=== PATIENT | female | born 1960 | race Caucasian/White ===

== ENCOUNTER 2018-10-19 09:14 | Emergency (ER) | payer OTHER, SELFPAY ==
[2018-10-19 09:21] VITALS: BP 133/83; PULSE 80; RESP 16; TEMP 36.6; O2SAT 98
--- NOTE | 2018-10-19 09:28 | DI.COMBO_ITS ---
SYMPTOM/DIAGNOSIS: FELL, LT SCALP CONTUSION, ? FX OR BLEED, PAIN AND SWELLING THUMB NONCONTRAST HEAD CT: Comparison is made with 09/29/17. The ventricles and sulci are consistent with the patient's age. The ventricles are intact. The basilar cisterns are patent. No acute intracranial hemorrhage, midline shift or mass effect is identified. No evidence of a skull fracture is seen. The visualized paranasal sinuses are clear. The mastoid air cells are well pneumatized. There is a scalp hematoma overlying the left frontal bone. 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 IMPRESSION: No acute intracranial process. RIGHT THUMB: Three views. There is a comminuted fracture involving the base of the first metacarpal. The fracture involves the articular surface. The fracture is impacted and displaced. No other fracture or dislocation is seen. There is soft tissue swelling about the metacarpal. IMPRESSION: Acute comminuted, intra-articular impacted fracture involving the base of the first metacarpal.
[2018-10-19] MEDS: Ibuprofen 800 MG TAB PO (09:36)
[2018-10-19] MEDS: Acetaminophen 500 MG TAB 1000 MG PO (09:37)
--- NOTE | 2018-10-19 09:41 | ED.GENADUL_ITS ---
Discharge Plan Disposition Patient Disposition: HOME Condition: Good Discharge Details Chief Complaint: Trauma Clinical Impression: Contusion of scalp, Laceration of scalp, Closed fracture of right thumb Primary Care Provider: Candida Nino ED Provider: Robert Fermin Home Meds and New Rx's Prescriptions: No Action liothyronine [Cytomel] 5 MCG tablet 5 mcg PO DAILY RF: 0 Discharge Instructions Instructions: Care For Your Stitches (ED) Additional Instructions: Please keep your thumb spica on. Dr. Mascorro plans on reaching out to you tomorrow, however if you do not hear from him tomorrow please give his office a call. Please take Tylenol and Motrin as needed for pain. Please return in 7 to 10 days to have your sutures removed. If you notice any worsening of your symptoms, or any new symptoms such as vomiting, diarrhea, fever, chills, shortness of breath, chest pain, numbness, weakness, or fainting , please return immediately to the emergency department for reevaluation. Please follow up with your primary care provider as soon as possible for reassessment and reevaluation. As always, it was a pleasure participating in your medical care today. Please leave the dressing on for 24 hours, then you may remove and begin cleaning the wound at least twice a day with soap and water. Apply antibiotic ointment. Do not directly soak the area. Watch for any signs of infection and return if any increasing redness, swelling, pain, drainage. Medical Decision Making This is a pleasant 58-year-old female who presents for evaluation of fall. She is working in her garden when she had a mechanical trip, fell and hit the left side of her scalp, as well as her right thumb on her dominant hand. She has a notable contusion on her scalp. Small laceration as well. Tetanus is up-to-date. No loss of consciousness, no blood thinner use. Signs and symptoms demonstrate no neurologic deficit on thorough exam. However with her age, and the mechanism I am concerned for acute intracranial injury or fracture. We will get an x-ray of the hand and a CT scan of the head to rule out acute process. We will suture the patient's scalp, place her hand in a brace, and reassess. 11:[address] results have returned, per virtual radiology no acute process in the head. No acute fracture or bleed. X-ray of the thumb demonstrates notable fracture at the base. The patient has seen Dr. Diaz before and she is requesting to follow-up with him. We have contacted [facility] and I discussed the case with him personally, he agrees with the need for surgical intervention, as well as the need for a thumb spica at this time. We will place her in that. Patient is feeling well otherwise. Patient will be discharged home with prompt follow-up with [facility] tomorrow morning. I have extensively reviewed the treatment plan and discharge instructions with the patient. I have addressed all patient concerns at this time. The patient was made aware of what symptoms to monitor for that would warrant a return to the emergency department. Discussed the plan with the patient, they demonstrate verbal understanding and agreement with our assessment and plan at this time. Procedure: Suture Patient was positioned appropriately, 5cc lidocaine without epinephrine> was used as a local anesthetic. Copious amounts normal saline with chlorhexidine used for irrigation. Patient was sterile draped with wound exposed. 5 sutures using 5-0 Ethilon were placed in a simple interrupted fashion with good approximation. Wound dressed with sterile gauze. A small amount of Dermabond was placed over the sutures knots. Estimated Blood Loss:0ml The patient tolerated the procedure well and there were no complications. COMPARISON: No relevant prior studies available. FINDINGS: Bones/joints: Acute comminuted intra-articular fracture of the base of the thumb metacarpal. Up to 8 mm of displacement and 7 mm of impaction. No dislocation. Soft tissues: Soft tissue swelling surrounding the thumb metacarpal. IMPRESSION: Acute comminuted, impacted, and displaced intra-articular fracture of the thumb metacarpal. Please note that this is a preliminary report. The separate, final report is to follow. Thank you for allowing us to participate in the care of your patient. Dictated and Authenticated by: Peg Gomes MD COMPARISON: CT HEAD AND CSPINE W/O CONTRAST 09/29/2017 5:24 PM FINDINGS: Brain: Mild diffuse cortical volume loss. No acute intracranial hemorrhage. No midline shift. Ventricles: Normal. No ventriculomegaly. 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 Sinuses: Unremarkable as visualized. No acute sinusitis. Mastoid air cells: Visualized mastoid air cells are well aerated. No mastoid effusion. Soft tissues: Left frontal scalp contusion. IMPRESSION: No acute intracranial abnormality is identified. Please note that this is a preliminary report. The separate, final report is to follow. Thank you for allowing us to participate in the care of your patient. Dictated and Authenticated by: Peg Gomes MD [facility] General Date/Time Provider Initiated Documentation: 10/19/18 09:19 . HPI Narrative: This is a pleasant 58-year-old female with a past medical history of thyroid disease, whose tetanus is up-to-date, who presents today for evaluation of fall. Patient states that she was gardening, had a mechanical trip over her mud boots, and fell and hit the left side of her scalp on gravel, suffered a laceration on her scalp, and mild contusion. She also landed on right dominant hand, and the thumb in particular. She developed notable swelling in the left thumb secondary to this. Tetanus was updated 4 years ago. She denies any loss of consciousness. She is not on any blood thinners. She denies any vision changes, severe headache, vomiting, diarrhea, chest pain, shortness of breath, or pain in any other component of her extremities. She denies any hand or wrist pain aside for the thumb in particular. She denies any elbow shoulder neck back chest or abdominal pain. She denies any numbness tingling or weakness. No other modifying factors. Related Data Home Medications Medication Instructions Recorded Confirmed liothyronine [Cytomel] 5 mcg PO DAILY 09/29/17 10/19/18 Allergies Allergy/AdvReac Type Severity Reaction Status Date / Time Sulfa (Sulfonamide Allergy Skin Rash Unverified 10/19/18 09:29 Antibiotics) Review of Systems Review of Systems All systems reviewed & are unremarkable except as noted in HPI and below PFSH Medical History Hypothyroid (Chronic) Surgical History History of knee surgery (Acute) H/O section (Chronic) History of appendectomy (Chronic) Social History Smoking/Tobacco Use Status: Never Substance use type: does not use Do you feel safe in your relationship?: Yes Exam Narrative Exam Narrative: 1.Const: Well-nourished, Well-developed, appearing stated age 2.Eyes: PERRL, no conjunctival injection, and symmetrical lids. 3.ENT: There is no evidence of raccoon eyes, mota sign, CSF rhinorrhea, mastoid tenderness, cranial crepitus, hemotympanum, exophthalmos, or hyphema. Patient demonstrates intact dentition with no signs of tooth avulsion or fracture, no signs of jaw deformity, no evidence of a LeFort's fracture, with an intact palate, nose and orbital region. There is no evidence of a nasal septal hematoma. No proptosis. Jaw closes symmetrically. Airway is clear. 4.CVS: +S1/S2, No murmurs or gallops. Peripheral pulses 2+ and equal in all extremities. Brisk capillary refill in all extremities. 5.RESP: Unlabored respiratory effort. Clear to auscultation bilaterally. No wheezes rales or rhonchi 6.GI: Soft, Nontender/Nondistended, No hepatosplenomegaly. No guarding or rebound. 7.MSK: No gross deformities or discolorations or lesions, however there is evidence of notable swelling over the right thumb over the metacarpal region. Notable swelling and tenderness over the first metacarpal. Thumb demonstrates good flexion and extension, however notable pain is brought about with abduction and abduction. Swelling is notable, and so it is difficult to evaluate for laxity. Sensation is intact distal to the injury site though, including two- point discrimination on all fingers at 3 mm. Capillary refill is normal. No pain for the fingers, the hand, or at the anatomical snuffbox. No wrist pain. All compartments of upper and lower extremities are soft with no tenderness. Vascular exam demonstrates brisk capillary refill and intact pulses in all extremities. Pelvic exam demonstrates a stable pelvis, nontender to lateral compression and palpation of symphysis pubis.. No clinical evidence of significant musculoskeletal trauma. 8.Skin: Warm, Dry. Notable contusion over the left forehead with a mild 3 cm laceration on top with a contusion. No active bleeding. Does appear superficial with no evidence of deep tissue structures or bone involvement. 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 Sensation grossly intact, no focal neurologic deficits. All 6 cardinal planes of vision are fully intact. No evidence of rotatory or vertical nystagmus. The patient demonstrated a normal [id number], good dexterity. There was no evidence of dysdiadochokinesia. Patient was able to ambulate without difficulty. There was no wide-based gait. Romberg, and [id number] are both normal on testing. Sensation was intact bilaterally as well as muscle strength bilaterally for all extremities. Patient was able to verbalize butter cup with no slurring, or miss pronunciation. 10.Psych: (AAO) x3. Appropriate mood and affect
--- NOTE | 2018-10-19 11:23 | DI.VRAD_ITS ---
EXAM: CT Head Without Contrast EXAM DATE/TIME: 10/19/2018 9:31 AM CLINICAL HISTORY: 58 years old, female; Signs and symptoms; Other: Fall, left scalp contusion, R/O fx/ bleed TECHNIQUE: Imaging protocol: Axial computed tomography images of the head without contrast. Coronal and sagittal reformatted images were created and reviewed. Radiation optimization: All CT scans at this facility use at least one of these dose optimization techniques: automated exposure control; mA and/or kV adjustment per patient size (includes targeted exams where dose is matched to clinical indication); or iterative reconstruction. COMPARISON: CT HEAD AND CSPINE W/O CONTRAST 09/29/2017 5:24 PM FINDINGS: Brain: Mild diffuse cortical volume loss. No acute intracranial hemorrhage. No midline shift. Ventricles: Normal. No ventriculomegaly. 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 Sinuses: Unremarkable as visualized. No acute sinusitis. Mastoid air cells: Visualized mastoid air cells are well aerated. No mastoid effusion. Soft tissues: Left frontal scalp contusion. IMPRESSION: No acute intracranial abnormality is identified. Please note that this is a preliminary report. The separate, final report is to follow. Dictated and Authenticated by: Peg Gomse MD. Ordering:PRESTON Jones MD
--- NOTE | 2018-10-19 11:25 | DI.VRAD_ITS ---
EXAM: XR Right Finger(s) EXAM DATE/TIME: 10/19/2018 9:31 AM CLINICAL HISTORY: 58 years old, female; Signs and symptoms; Other: Fall, notable pain/swelling lt thumbmetacarpal TECHNIQUE: Imaging protocol: XR Right fingers. Views: Minimum 2 views. COMPARISON: No relevant prior studies available. FINDINGS: Bones/joints: Acute comminuted intra-articular fracture of the base of the thumb metacarpal. Up to 8 mm of displacement and 7 mm of impaction. No dislocation. Soft tissues: Soft tissue swelling surrounding the thumb metacarpal. IMPRESSION: Acute comminuted, impacted, and displaced intra-articular fracture of the thumb metacarpal. Please note that this is a preliminary report. The separate, final report is to follow. Dictated and Authenticated by: Peg Gomes MD. Ordering:PRESTON Jones MD
[2018-10-19 12:00] VITALS: BP 133/75; PULSE 67; RESP 16; TEMP 36.6; O2SAT 96
== END 2018-10-19 12:00 | disposition home or self-care (01) ==
PROVIDERS: Emergency Provider Student in an Organized Health Care Education/Training Program; PCP Family Medicine
DX: S62.231A Other displaced fracture of base of first metacarpal bone, right hand, initial encounter for closed fracture (principal); S01.01XA Laceration without foreign body of scalp, initial encounter; W01.0XXA Fall on same level from slipping, tripping and stumbling without subsequent striking against object, initial encounter
CPT/HCPCS: 12002; 26600; 99284; 70450; 73140; L3807

== ENCOUNTER 2020-03-09 15:26 | Emergency (ER) | payer BC, SELFPAY ==
[2020-03-09 15:30] VITALS: BP 151/91; PULSE 71; RESP 20; TEMP 36.4; O2SAT 98
--- NOTE | 2020-03-09 15:41 | ED.GENADUL_ITS ---
Discharge Plan Disposition Patient Disposition: HOME Condition: Stable Discharge Details Clinical Impression: Laceration of leg Primary Care Provider: Candida Nino ED Provider: Serene Cadena Home Meds and New Rx's Prescriptions: New cephalexin [Keflex] 500 mg capsule 500 mg PO TID 7 Days Qty: 21 RF: 0 Continued liothyronine [Cytomel] 5 MCG tablet 5 mcg PO DAILY RF: 0 Discharge Instructions Instructions: Laceration (ED) Additional Instructions: Keep wound clean and dry. Cover wound with bandage if risk of contamination. Otherwise you can keep the wound open to air if resting at home to allow edges to dry and heal. Take the antibiotics until finished. Return to the emergency department in 7 to 10 days for suture removal. Discharge Data Discharge Date/Time-TO BE ENTERED AT DEPARTURE: 03/09/20 18:00 Discharge Physician: Serene Cadena Medical Decision Making 59-year-old female presents with left leg injury after kicked by horse just prior to arrival. She has a 4 x 4 millimeter puncture site skin avulsion to the left lower anterior lateral leg. There is no obvious foreign body or orthopedic deformity. Tetanus up-to-date. Obtain x-ray to rule out fracture versus foreign body. Will irrigate wound and attempt closure. X-ray negative for fracture and foreign body. Wound irrigated well. Wound appears most likely consistent with avulsion with macerated tissue around edge. She has continued oozing. 4 nylon 5-0 sutures placed to minimally approximate wound. Discussed with patient that there is a strong possibility of poor wound healing as it is her distal extremity, and edges not approximated likely due to macerated tissue with avulsion. Will place on antibiotics to cover for inf ection. Gelfoam placed to wound covered with gauze and Kerlix. Advised on the importance of elevation to decrease edema to improve wound healing. Advised return to ED in 7 days for suture removal. Insert return precautions Medical Records Medical records reviewed: Yes I reviewed the patient's medical records. Imaging Data Radiologic Study: Radiologist's impression: XR Left Tibia and Fibula Exam date and time: 03/09/2020 4:27 PM Age: 59 years old Clinical indication: Injury or trauma; Other: Kicked by horse; Blunt trauma; Lower leg; Left; Injury date: 03/09/20 TECHNIQUE: Imaging protocol: XR Left tibia and fibula. Views: 2 views. COMPARISON: No relevant images were readily available for comparison purposes. FINDINGS: Bones/joints: No acute fracture or dislocation. Soft tissues: Unremarkable. IMPRESSION: No acute fracture or dislocation. HPI General Mode of arrival: ambulatory . Date/Time Provider Initiated Documentation: 03/09/20 15:41 . Limitations to Documentation: no limitations . Information obtained by: patient . HPI Narrative: Patient is a 59-year-old female with history of hypothyroidism who presents with left leg injury after kicked by horse prior to arrival. Patient states she was riding a horse which came close to another horse that her friend was riding when that horse kicked her in her left leg. Patient states she has been able to ambulate but with pain. Related Data Home Medications Medication Instructions Recorded Confirmed liothyronine [Cytomel] 5 mcg PO DAILY 09/29/17 03/09/20 cephalexin [Keflex] 500 mg PO TID 7 Days #21 cap 03/09/20 Previous Rx's Medication Instructions Recorded cephalexin [Keflex] 500 mg PO TID 7 Days #21 cap 03/09/20 Allergies Allergy/AdvReac Type Severity Reaction Status Date / Time Sulfa (Sulfonamide Allergy Skin Rash Unverified 03/09/20 15:32 Antibiotics) General Stated Complaint: Laceration FADUMO: 4 Review of Systems All systems reviewed & are unremarkable except as noted in HPI and below Constitutional Constitutional: Reports as per HPI, Denies chills and Denies fever(s) Eyes Eyes: Denies blurry vision ENT Ears, Nose, Mouth, and Throat: Denies dizziness, Denies sore throat and Denies throat swelling Cardiovascular Cardiovascular: Denies chest pain and Denies dyspnea Respiratory Respiratory: Denies cough and Denies dyspnea Gastrointestinal Gastrointestinal: Denies abdominal pain, Denies diarrhea and Denies vomiting Genitourinary Genitourinary: Denies hematuria and Denies dysuria Musculoskeletal Musculoskeletal: Denies back pain and Denies numbness Integumentary/Breasts Skin/Breast: Denies lesions and Denies rash Neurologic Neurologic: Denies dizziness, Denies localized weakness and Denies numbness Allergic/Immunologic Allergic/Immunologic: Denies throat swelling [facility] Medical History (Updated 03/09/20 @ 17:43 by Serene Cadena DO) Hypothyroid Surgical History (Updated 05/27/19 @ 09:30 by Rossana Og) H/O section History of appendectomy History of knee surgery Social History Smoking/Tobacco Use Status: Never Drug use: Never Substance use type: does not use Do you feel safe at home: Yes Do you feel safe in your relationship?: Yes Exam Const General: cooperative, healthy appearing and no acute distress HENMT Head: normal to inspection Mouth: oral mucosae normal Eyes General: appearance normal, both eyes and all related structures Neck Neck: normal visual inspection Resp Effort & Inspection: normal respiratory effort and able to speak in complete sentences Cardio Rate: regular rate Skin General skin exam: no rashes or lesions noted Neuro General: patient alert, patient awake and patient oriented x3 Motor: muscle tone normal throughout Extrem Ankle/foot/toe images: 1. 4 x 4 millimeter puncture/skin avulsion noted to left lower anterior lateral leg. There is surrounding edema, ecchymosis and tenderness to palpation. No orthopedic deformity. No crepitus. Compartments soft. Psych Appearance: grossly normal Affect: normal affect Course Vital Signs Vital signs: Vital Signs Temperature 97.5 F L 03/09/20 15:30 Pulse 71 03/09/20 15:30 Respiratory Rate 20 03/09/20 15:30 Blood Pressure 151/91 H 03/09/20 15:30 Pulse Oximetry 98 03/09/20 15:30 Temperature 97.5 F L 03/09/20 15:30 Temperature Source Skin 03/09/20 15:30 Pulse 71 03/09/20 15:30 Respiratory Rate 20 03/09/20 15:30 Respiratory Effort Non-Labored 03/09/20 15:32 Blood Pressure 151/91 H 03/09/20 15:30 Blood Pressure Position Sitting 03/09/20 15:30 Pulse Oximetry 98 03/09/20 15:30 Oxygen Delivery Method Room Air 03/09/20 15:30 Oxygen Flow Rate 0 03/09/20 15:30 Pain Level 4 03/09/20 15:30 Procedures Laceration Laceration 1: Site: lower extremity Side (If applicable): left Size (cm): 0.4 Description: stellate and irregular Depth: simple, single layer Local Anesthetic: Lidocaine 1% and with Epi Amount of anesthesia used (mL): 5 Pre-repair: wound explored, irrigated extensively and deep structures intact Skin layer closed with: nylon Size (cm): 5-0 Number of sutures: 4 Technique: simple, interrupted
--- NOTE | 2020-03-09 16:30 | DI.RAD_ITS ---
EXAM: XR TIB/FIB LT CLINICAL HISTORY: kicked in L leg by horse, r/o fx/fb. TECHNIQUE: 2D digital imaging was performed COMPARISON: No exams were available for comparison FINDINGS: BONES: No acute fracture is present. No bony destructive lesion is seen. Visualized portion of knee a nd ankle joints are unremarkable. SOFT TISSUE: Soft tissue swelling in the anterior and lateral aspects of the left lower leg. No radi opaque foreign bodies. IMPRESSION: No acute fracture or dislocation. DATA REPOSITORY: RADIATION DOSE DELIVERED:
--- NOTE | 2020-03-09 16:45 | DI.VRAD_ITS ---
PROCEDURE INFORMATION: Exam: XR Left Tibia and Fibula Exam date and time: 03/09/2020 4:27 PM Age: 59 years old Clinical indication: Injury or trauma; Other: Kicked by horse; Blunt trauma; Lower leg; Left; Injury date: 03/09/20 TECHNIQUE: Imaging protocol: XR Left tibia and fibula. Views: 2 views. COMPARISON: No relevant images were readily available for comparison purposes. FINDINGS: Bones/joints: No acute fracture or dislocation. Soft tissues: Unremarkable. IMPRESSION: No acute fracture or dislocation. Dictated and Authenticated by: Dar Donaldson MD. Ordering:MAYUR Cast MD
[2020-03-09] MEDS: Acetaminophen 325 MG TAB 650 MG PO (16:58)
[2020-03-09] MEDS: Cephalexin 500 MG CAP PO (17:52)
[2020-03-09] MEDS: Cephalexin 500 MG CAP, 4 CAPS/BTL PO (17:53)
[2020-03-09] MEDS: Cellulose,Oxidized 2X3 PKT 1 EACH MC (17:53)
== END 2020-03-09 18:00 | disposition home or self-care (01) ==
PROVIDERS: Emergency Provider Physician Assistant; PCP Family Medicine
DX: S81.812A Laceration without foreign body, left lower leg, initial encounter (principal); W55.12XA Struck by horse, initial encounter; Y93.52 Activity, horseback riding
CPT/HCPCS: 12001; 99281; 73590

== ENCOUNTER 2020-06-05 02:39 | Outpatient (CLI) | payer BC, SELFPAY ==
[2020-06-05 08:19] LABS: Abs Immature Grans 0.01 10^3/uL (0.0-0.06); Absolute Basophil Count 0.01 10^3/uL (0.0-0.2); Absolute Eosinophil Count 0.12 10^3/uL (0.0-0.7); Absolute Lymphocyte Count 0.36 10^3/uL (1.2-3.4); Absolute Monocyte Count 0.35 10^3/uL (0.1-0.8); Basophils % 0.3; Eosinophils % 3.1; HCT 43.3 % (36.0-46.0); Immature Grans % 0.3; Lymphocytes % 9.4; MCH 33.3 pg (27.0-33.0); MCHC 34.6 % (32.0-36.0); MCV 96.2 fL (80-95); MPV 11.8 fL (8.0-11.0); Monocytes % 9.1; Neutrophils % 77.8; Nucleated RBC 0 %; Platelet Count 160 10^3/uL (130-400); RDW-SD 42.9 fL; WBC 3.85 10^3/uL (4.4-10.8)
[2020-06-05 08:50] LABS: Iron 183 ug/dL (50-170); Total Iron Binding Capacity 322 ug/dL (250-450)
[2020-06-05 09:03] LABS: Calculated LDL 196 mg/dL (<100); Cholesterol 281 mg/dL (<200); Ferritin 124 ng/mL (8-252); HDL Cholesterol 72 mg/dL (40-60); Triglyceride 69 mg/dL (<150)
[2020-06-05 09:16] LABS: Vitamin D 25 Total 35.4 ng/ml (30-100)
== END 2020-06-05 02:59 ==
PROVIDERS: PCP Family Medicine; Visit Provider Obstetrics & Gynecology
DX: E78.5 Hyperlipidemia, unspecified (principal); R79.89 Other specified abnormal findings of blood chemistry
CPT/HCPCS: 36415; 80061; 82306; 83090; 82728; 83540; 83550; 85025

== ENCOUNTER 2020-06-27 03:16 | Outpatient (CLI) | payer BC, SELFPAY ==
[2020-06-27 11:12] LABS: ALT 112 U/L (14-59); AST 42 U/L (15-37); Albumin 3.8 g/dL (3.4-5.0); Alkaline Phosphatase 78 U/L (46-116); Anion Gap 9.9 mmol/L (3-11); BUN 14 mg/dL (7-18); Bilirubin, Total 0.6 mg/dL (0.2-1.0); CO2 25.1 mmol/L (21.0-32.0); CREATININE 0.6 mg/dL (0.55-1.02); Calcium 8.4 mg/dL (8.5-10.1); Chloride 106 mmol/L (98-107); Folate > 20.0 ng/mL (8.6-20.0); Glucose 81 mg/dL (74-106); Sodium 141 mmol/L (136-145); Total Protein 6.4 g/dL (6.4-8.2); Vitamin B12 470 pg/mL (193-986)
[2020-06-27 11:29] LABS: C-Reactive Protein 0.06 mg/dL (0.0-0.3); FREE T4 0.84 ng/dL (0.76-1.46)
[2020-06-27 17:14] LABS: T3,Free 3.9 pg/mL (2.8-5.3)
[2020-07-03 08:49] LABS: Methylmalonic Acid 0.13 nmol/mL (<=0.40)
== END 2020-06-27 03:17 | disposition home or self-care (01) ==
LOC: LBO 03:16
PROVIDERS: PCP Family Medicine; Visit Provider Obstetrics & Gynecology
DX: E78.5 Hyperlipidemia, unspecified (principal); R79.89 Other specified abnormal findings of blood chemistry; Z51.81 Encounter for therapeutic drug level monitoring
CPT/HCPCS: 36415; 80053; 80186; 82607; 82746; 84439; 84443; 84481; 86140

== ENCOUNTER 2020-07-03 03:27 | Outpatient (CLI) | payer BC, SELFPAY ==
[2020-07-03 14:17] LABS: HCT 42.4 % (36.0-46.0); HGB 14.5 g/dL (11.2-15.7); MCHC 34.2 % (32.0-36.0); MCV 96.6 fL (80-95); MPV 11.7 fL (8.0-11.0); Platelet Count 174 10^3/uL (130-400); RBC 4.39 10^6/uL (3.93-5.22); RDW 11.9 % (11.7-14.6); RDW-SD 42.8 fL; WBC 5.24 10^3/uL (4.4-10.8)
== END 2020-07-03 03:28 | disposition home or self-care (01) ==
LOC: LBO 03:27
PROVIDERS: PCP Family Medicine; Visit Provider Obstetrics & Gynecology
DX: E78.5 Hyperlipidemia, unspecified (principal); R79.89 Other specified abnormal findings of blood chemistry
CPT/HCPCS: 85027

== ENCOUNTER 2020-07-19 02:30 | Outpatient (CLI) | payer BC, SELFPAY ==
[2020-07-19 08:15] LABS: HGB 14.4 g/dL (11.2-15.7); MCH 33.1 pg (27.0-33.0); MCHC 34.3 % (32.0-36.0); MCV 96.6 fL (80-95); MPV 11.7 fL (8.0-11.0); Platelet Count 146 10^3/uL (130-400); RBC 4.35 10^6/uL (3.93-5.22); RDW 12.1 % (11.7-14.6); RDW-SD 43.7 fL; WBC 3.76 10^3/uL (4.4-10.8)
[2020-07-19 09:39] LABS: ALT 44 U/L (14-59); AST 22 U/L (15-37); Albumin 3.6 g/dL (3.4-5.0); Alkaline Phosphatase 78 U/L (46-116); Bilirubin, Direct 0.09 mg/dL (0.00-0.20); Bilirubin, Total 0.6 mg/dL (0.2-1.0); Total Protein 6.2 g/dL (6.4-8.2)
== END 2020-07-19 02:31 | disposition home or self-care (01) ==
LOC: LBO 02:30
PROVIDERS: PCP Family Medicine; Visit Provider Obstetrics & Gynecology
DX: R74.8 Abnormal levels of other serum enzymes (principal)
CPT/HCPCS: 36415; 80076; 85027

== ENCOUNTER 2020-10-24 03:02 | Outpatient (CLI) | payer BC, SELFPAY ==
[2020-10-24 08:18] LABS: Abs Immature Grans 0.01 10^3/uL (0.0-0.06); Absolute Basophil Count 0.01 10^3/uL (0.0-0.2); Absolute Eosinophil Count 0.31 10^3/uL (0.0-0.7); Absolute Lymphocyte Count 0.47 10^3/uL (1.2-3.4); Absolute Monocyte Count 0.31 10^3/uL (0.1-0.8); Absolute Neutrophil Count 2.92 10^3/uL (1.2-6.7); Basophils % 0.2; Eosinophils % 7.7; HCT 42.7 % (36.0-46.0); HGB 14.7 g/dL (11.2-15.7); Immature Grans % 0.2; Lymphocytes % 11.7; MCH 33.1 pg (27.0-33.0); MCHC 34.4 % (32.0-36.0); MCV 96.2 fL (80-95); MPV 12.1 fL (8.0-11.0); Monocytes % 7.7; Neutrophils % 72.5; Nucleated RBC 0 %; Platelet Count 156 10^3/uL (130-400); RBC 4.44 10^6/uL (3.93-5.22); RDW 12.4 % (11.7-14.6); RDW-SD 44.7 fL; WBC 4.03 10^3/uL (4.4-10.8)
[2020-10-24 08:55] LABS: Iron 140 ug/dL (50-170); Total Iron Binding Capacity 302 ug/dL (250-450); Transferrin Sat 46 % (15-50)
[2020-10-24 09:01] LABS: ALT 40 U/L (14-59); AST 21 U/L (15-37); Albumin 3.6 g/dL (3.4-5.0); Alkaline Phosphatase 84 U/L (46-116); Bilirubin, Direct 0.1 mg/dL (0.0-0.2); Bilirubin, Total 0.5 mg/dL (0.2-1.0); Total Protein 6.1 g/dL (6.4-8.2)
[2020-10-24 09:30] LABS: Ferritin 103 ng/mL (8-252)
[2020-10-27 16:23] LABS: Misc Referral (MAYO) See Comments
== END 2020-10-24 03:03 | disposition home or self-care (01) ==
LOC: LBO 03:02
PROVIDERS: PCP Family Medicine; Visit Provider Obstetrics & Gynecology
DX: R79.89 Other specified abnormal findings of blood chemistry (principal); E78.5 Hyperlipidemia, unspecified
CPT/HCPCS: 36415; 80076; 83704; 82465; 82728; 83540; 83550; 83718; 84478; 85025

== ENCOUNTER 2021-03-27 02:17 | Outpatient (CLI) | payer BC, SELFPAY ==
[2021-03-27 08:42] LABS: Abs Immature Grans 0.01 10^3/uL (0.0-0.06); Absolute Eosinophil Count 0.17 10^3/uL (0.0-0.7); Absolute Lymphocyte Count 0.57 10^3/uL (1.2-3.4); Absolute Monocyte Count 0.43 10^3/uL (0.1-0.8); Absolute Neutrophil Count 3.84 10^3/uL (1.2-6.7); Eosinophils % 3.4; HCT 43.9 % (36.0-46.0); HGB 14.6 g/dL (11.2-15.7); Immature Grans % 0.2; Lymphocytes % 11.4; MCH 32.3 pg (27.0-33.0); MCHC 33.3 % (32.0-36.0); MCV 97.1 fL (80-95); MPV 11.7 fL (8.0-11.0); Monocytes % 8.6; Neutrophils % 76.4; Nucleated RBC 0 %; Platelet Count 166 10^3/uL (130-400); RBC 4.52 10^6/uL (3.93-5.22); RDW 12.2 % (11.7-14.6); RDW-SD 43.8 fL; WBC 5.02 10^3/uL (4.4-10.8)
[2021-03-27 09:02] LABS: Hemoglobin A1C 5.5 % (<5.7)
[2021-03-27 09:43] LABS: Calculated LDL 189 mg/dL (<100); Cholesterol 270 mg/dL (<200); HDL Cholesterol 64 mg/dL (40-60); TSH 2.16 uIU/mL (0.36-3.74); Triglyceride 89 mg/dL (<150)
[2021-03-27 10:03] LABS: FREE T4 0.91 ng/dL (0.76-1.46)
[2021-03-27 17:06] LABS: T3,Free 3.5 pg/mL (2.8-5.3)
[2021-03-29 01:42] LABS: Vitamin D 25 Total 34.2 ng/mL (30-100)
== END 2021-03-27 02:18 | disposition home or self-care (01) ==
LOC: LBO 02:17
PROVIDERS: PCP Family Medicine; Visit Provider Obstetrics & Gynecology
DX: E78.5 Hyperlipidemia, unspecified (principal); D64.9 Anemia, unspecified
CPT/HCPCS: 36415; 80061; 82306; 83036; 84439; 84443; 84481; 85025

== ENCOUNTER → 2022-01-31 02:06 | Outpatient (CLI) | payer BC, SELFPAY ==
--- NOTE | 2022-01-31 07:15 | DI.RAD_ITS ---
Exam(s) XR HAND LT COMPLETE EXAM: XR HAND LT COMPLETE CLINICAL HISTORY: r/o fx, lt hand pain, [id number]. TECHNIQUE: 2D digital imaging was performed of the left hand. Three views were obtained. AP, later al and oblique views were obtained. COMPARISON: No exams were available for comparison FINDINGS: BONES: There is an acute oblique fracture through the distal metaphysis into the head of the 5th meta carpal. It does not appear to extend into the MCP joint. There is mild displacement. No bony destr uctive lesion is seen. JOINTS: No dislocation present. SOFT TISSUE: Normal. IMPRESSION: Mildly displaced fracture involving the distal aspect of the left 5th metacarpal. DATA REPOSITORY: RADIATION DOSE DELIVERED:
== END ==
PROVIDERS: PCP Family Medicine; Visit Provider Nurse Practitioner Family
DX: S62.397A Other fracture of fifth metacarpal bone, left hand, initial encounter for closed fracture (principal); X58.XXXA Exposure to other specified factors, initial encounter
CPT/HCPCS: 73130

== ENCOUNTER 2022-02-06 13:48 | Outpatient (CLI) | payer BC, SELFPAY ==
--- NOTE | 2022-02-06 13:15 | DI.RAD_ITS ---
Exam(s) XR HAND LT COMPLETE EXAM: XR HAND LT COMPLETE CLINICAL HISTORY: LEFT 5th metacarpal fracture. TECHNIQUE: 2D digital imaging was performed. COMPARISON: CR XR HAND LT COMPLETE from 01/31/2022 FINDINGS: 3 views Again noted is the oblique displaced fracture of the head-neck of the 5th metacarpal, unchanged from 01/31/2022. No further displacement evident. No additional fracture seen. IMPRESSION: DATA REPOSITORY: RADIATION DOSE DELIVERED:
== END 2022-02-06 13:49 | disposition home or self-care (01) ==
LOC: DIORS 13:48
PROVIDERS: PCP Family Medicine; Referring Provider Family Medicine; Visit Provider Physician Assistant
DX: S62.337A Displaced fracture of neck of fifth metacarpal bone, left hand, initial encounter for closed fracture (principal); X58.XXXA Exposure to other specified factors, initial encounter
CPT/HCPCS: 73130

== ENCOUNTER 2022-03-04 09:09 | Outpatient (CLI) | payer BC, SELFPAY ==
--- NOTE | 2022-03-04 08:45 | DI.RAD_ITS ---
Exam(s) XR HAND LT COMPLETE EXAM: XR HAND LT COMPLETE CLINICAL HISTORY: follow up. TECHNIQUE: 2D digital imaging was performed. Three views. COMPARISON: CR XR HAND LT COMPLETE from 02/06/2022 FINDINGS: BONES: Continued healing at the fracture of the distal 5th metacarpal. No change in alignment. No n ew fractures. No bony destructive lesion is seen. JOINTS: No dislocation present. SOFT TISSUE: Normal. IMPRESSION: Healing fracture 5th metacarpal. DATA REPOSITORY: RADIATION DOSE DELIVERED:
== END 2022-03-04 09:10 | disposition home or self-care (01) ==
LOC: DIORS 09:09
PROVIDERS: PCP Family Medicine; Referring Provider Family Medicine; Visit Provider Physician Assistant Surgical
DX: S62.337D Displaced fracture of neck of fifth metacarpal bone, left hand, subsequent encounter for fracture with routine healing (principal); X58.XXXD Exposure to other specified factors, subsequent encounter
CPT/HCPCS: 73130

== ENCOUNTER 2022-04-13 17:21 | Inpatient (IN) | payer BC, SELFPAY ==
[2022-04-13] VITALS (34 sets, daily range): BP systolic 106–140; BP diastolic 71–88; PULSE 75–146; RESP 9–29; TEMP 36.5–37.2; O2SAT 94–100
--- NOTE | 2022-04-13 17:15 | RT.EKG_ITS ---
APPROVED REPORT Exam: Resting ECG Reason for Exam: palpitations Patient Location: E HR:145 bpm ECG Measurements Heart Rate 145 AXIS DE 68 P 0 QRSd 104 QRS -78 QT 313 T 106 QTc 488 Conclusion Sinus tachycardia...rate> 99 Inferior infarct, old...Q >35mS, II III aVF Anterior infarct, old...Q >40mS, abnormal ST-T, V2-V5 ST depr, consider ischemia, anterolateral lds...ST <-0.10mV, I aVL V2-V regular, wide complex tachycardia with left axis deciation; consider svt with aberrancy v aflutter wi th aberrancy v less likely slow VT
--- NOTE | 2022-04-13 17:38 | W.ED.GENAD ---
Discharge Plan Disposition Patient Disposition: Admit to [facility] Condition: Fair Discharge Details Chief Complaint: Palpitatns Clinical Impression: Tachycardia, CHF (congestive heart failure) Primary Care Provider: Salyt Toledo ED Provider: Pawel Dey Home Meds and New Rx's Prescriptions: No Action liothyronine [Cytomel] 5 MCG tablet 5 mcg PO DAILY Medical Decision Making 61-year-old female history of hypothyroidism presents with palpitations over the past several days intermittent in nature now more persistent this evening, associated with some exertional dyspnea, wide-complex regular tachycardia with a rate of 140s to 150s, normal perfusion on examination no peripheral edema, no respiratory distress hemodynamically stable maintaining blood pressure and mental status, EKG read as sinus tachycardia however no P waves are apparent possible sawtooth baseline in V1 consider a flutter with a 2-1 conduction versus A. fib with aberrancy must consider ACS versus less likely slow ventricular tachycardia will obtain basic labs electrolytes will trial fluid bolus likely will dose diltiazem, x-ray EKG close reassessment of symptoms. Disposition pending labs 18: 58 persistent tachycardia in the range of 1 30-1 40s, no chest pain or shortness of breath, elevated BNP and transaminase elevation likely related to CHF with component of hepatic congestion, consider silent cardiac event in the preceding week (NSTEMI) leading to current arrhythmia versus persistent tachycardia leading to troponin leak and CHF from high output state. Awaiting magnesium results. Patient was given 15 mg IV push of diltiazem without effect. Will consult [facility] cardiology once full electrolyte panel is received. Will consider likely admission for further cardiac eval 19: 52 consulted with [facility] rifle case repairer Dr. Gagnon, reviewed labs imaging clinical presentation; given bedside ultrasound showing possible apical hypokinesis with subtle wall motion abnormality and B-lines on pulmonary field patient's presentation is consistent with early heart failure consider silent VT earlier in the week versus new arrhythmia with demand; will proceed with diuresis, will admit for further cardiac evaluation including echo further diuresis and possible rate control agent cardiology recommending starting with diuresis first before adding a rate control agent. Cardiology team open to consider transfer if acutely decompensates or presents with more acute symptomatology such as chest pain EKG changes or worsening troponin. Sign Out No HPI General Date/Time Provider Initiated Documentation: 04/13/22 17:22. HPI Narrative: 61-year-old female history of hypothyroidism, presents with palpitations over the past several days intermittent in nature now persistent this evening, some exertional dyspnea, no history of coronary artery disease or thromboembolic disease. No recent change in her thyroid medications. Related Data Home Medications Medication Instructions Recorded Confirmed liothyronine 5 mcg tablet (Cytomel) 5 mcg PO DAILY 09/29/17 04/13/22 Allergies Allergy/AdvReac Type Severity Reaction Status Date / Time Sulfa (Sulfonamide Allergy Skin Rash Verified 04/13/22 17:35 Antibiotics) General Stated Complaint: Palpitatns FADUMO: 3 Review of Systems Narrative: Review of Systems Constitutional: negative Eyes: negative ENT: negative Cardiovascular: Palpitations Respiratory: negative Gastrointestinal: negative : negative Musculoskeletal: negative Skin: negative Neurologic: negative Psych: negative PFSH All Active Problems (Updated 04/13/22 @ 20:07 by Pawel Dey MD) Tachycardia (Acute) CHF (congestive heart failure) (Chronic) Displaced fracture of neck of left fifth metacarpal bone (Acute 01/31/22) Medical History (Updated 04/13/22 @ 20:07 by Pawel Dey MD) Hypothyroid Surgical History (Updated 10/19/18 @ 09:30 by Rossana Hernandez) H/O section History of appendectomy History of knee surgery Social History Smoking/Tobacco Use Status: Never Smoking risk assessment performed?: Yes Alcohol Intake: current Alcohol Intake frequency: holidays/special occasions only Drug use: Never Substance use type: does not use Do you feel safe at home: Yes Do you feel safe in your relationship?: Yes Exam Narrative Exam Narrative: Physical Examination General: alert, awake, cooperative, resting comfortably, no acute distress HEENT: normocephalic, atraumatic; PERRL, EOM intact, conjunctiva normal; no nasal discharge; moist mucous membranes, oral and pharyngeal mucosa normal, tolerating secretions Neck: supple, trachea midline; full ROM Chest: normal to inspection Respiratory: normal respiratory effort, speaking in full sentences, clear to auscultation, no wheezing, rales or rhonchi Cardiac: Tachycardia, regular rhythm, S1S2 intact, no murmurs rubs or gallops GI: abdomen soft, non-tender, non-distended; no palpable mass or hepatosplenomegaly Skin: no lesions, rashes or trauma appreciated Neuro: AAOx3, normal speech, moving all extremities Extremities: No peripheral edema Psych: Appropriate mood and affect Course Vital Signs Vital signs: Vital Signs Temperature 36.5 C 04/13/22 17:24 Pulse 146 H 04/13/22 17:24 Respiratory Rate 12 04/13/22 17:24 Blood Pressure 140/87 04/13/22 17:24 Pulse Oximetry 98 04/13/22 17:24 Temperature 36.5 C 04/13/22 17:24 Temperature Source Temporal Artery Scan 04/13/22 17:24 Pulse 146 H 04/13/22 17:24 Respiratory Rate 12 04/13/22 17:24 Respiratory Effort Non-Labored 04/13/22 17:36 Blood Pressure 140/87 04/13/22 17:24 Blood Pressure Position Sitting 04/13/22 17:24 Pulse Oximetry 98 04/13/22 17:24 Oxygen Delivery Method Room Air 04/13/22 17:24 Oxygen Flow Rate 0 04/13/22 17:24 Pain Level 0 04/13/22 17:24
[2022-04-13] MEDS: Normal Saline 1,000 ML 1000 ML IV (17:43)
[2022-04-13] MEDS: Aspirin 81 MG CHEW 324 MG CH (17:43)
[2022-04-13 17:46] LABS: Abs Immature Grans 0.02 10^3/uL (0.0-0.06); Absolute Basophil Count 0.01 10^3/uL (0.0-0.2); Absolute Eosinophil Count 0.16 10^3/uL (0.0-0.7); Absolute Lymphocyte Count 0.73 10^3/uL (1.2-3.4); Absolute Monocyte Count 0.64 10^3/uL (0.1-0.8); Absolute Neutrophil Count 4.96 10^3/uL (1.2-6.7); Basophils % 0.2; Eosinophils % 2.5; HCT 42.6 % (36.0-46.0); HGB 13.8 g/dL (11.2-15.7); Immature Grans % 0.3; Lymphocytes % 11.2; MCH 32.2 pg (27.0-33.0); MCHC 32.4 % (32.0-36.0); MCV 100 fL (80-95); MPV 12.6 fL (8.0-11.0); Monocytes % 9.8; Platelet Count 181 10^3/uL (130-400); RBC 4.28 10^6/uL (3.93-5.22); RDW 13.1 % (11.7-14.6); WBC 6.52 10^3/uL (4.4-10.8)
--- NOTE | 2022-04-13 17:53 | DI.RAD_ITS ---
Exam(s) XR PORTABLE CHEST AP EXAM: XR PORTABLE CHEST AP CLINICAL HISTORY: palpitations TECHNIQUE: COMPARISON: No exams were available for comparison FINDINGS: The heart appears mildly enlarged. Lungs are grossly clear and well expanded. No pleural effusion s een on this frontal film. IMPRESSION: Cardiomegaly, no evidence of CHF. RADIATION DOSE DELIVERED: Total DLP
--- NOTE | 2022-04-13 18:02 | DI.VRAD_ITS ---
PROCEDURE INFORMATION: Exam: XR Chest Exam date and time: 04/13/2022 17:31 Age: 61 years old Clinical indication: Pain; Patient HX: Palpitations started today. TECHNIQUE: Imaging protocol: Radiologic exam of the chest. Views: 1 view. COMPARISON: CT HEAD AND CSPINE W/O CONTRAST 09/29/2017 17:24 FINDINGS: Lungs: No airspace consolidation. Pleural spaces: No pleural effusion. No pneumothorax. Heart/Mediastinum: Mild cardiomegaly without significant vascular congestion for technique. Bones/joints: No acute fracture. IMPRESSION: Mild cardiomegaly without significant vascular congestion for technique. Dictated and Authenticated by: Kriss Lopez MD. Ordering:OTILIA Armas MD
[2022-04-13 18:03] LABS: PTT Activated 25.4 sec (21.0-27.5); Prothrombin Time 10.4 sec (9.3-11.0)
[2022-04-13 18:22] LABS: ALT 441 U/L (14-59); AST 259 U/L (15-37); Alkaline Phosphatase 123 U/L (46-116); Anion Gap 11.5 mmol/L (3-11); BUN 20 mg/dL (7-18); Bilirubin, Total 0.5 mg/dL (0.2-1.0); CO2 26.5 mmol/L (21.0-32.0); Chloride 103 mmol/L (98-107); Estimated GFR 64.09 (mL/min/1.73m2); Glucose 116 mg/dL (74-106); Potassium 3.5 mmol/L (3.5-5.1); Sodium 141 mmol/L (136-145); TSH (W/Ref FT4) 4.54 uIU/mL (0.36-3.74); Total Protein 7.3 g/dL (6.4-8.2)
[2022-04-13 18:26] LABS: Troponin I 134 ng/L (<or=60)
[2022-04-13] MEDS: dilTIAZem 25 MG/5 ML VIAL 15 MG IVP (18:37)
[2022-04-13 18:41] LABS: NT-proBNP 10878 pg/mL (<300)
[2022-04-13 18:47] LABS: Magnesium 2.2 mg/dL (1.8-2.4)
[2022-04-13 19:09] LABS: FREE T4 1.27 ng/dL (0.76-1.46)
[2022-04-13] MEDS: Furosemide 40 MG/4 ML VIAL IVP (19:52)
--- NOTE | 2022-04-13 20:15 | RT.EKG_ITS ---
APPROVED REPORT Exam: Resting ECG Reason for Exam: converted to sinus rhythm Patient Location: E HR:85 bpm ECG Measurements Heart Rate 85 AXIS [place] 176 P 51 QRSd 115 QRS -68 QT 427 T 105 QTc 509 Conclusion Sinus rhythm...normal P axis, V-rate 60- 99 Probable left atrial enlargement...P >50mS, <-0.10mV V1 LVH with secondary repolarization abnormality...multi-LVH criteria, abnrm ST-T Inferior infarct, old...Q >35mS, II III aVF Anterior infarct, old...Q >40mS, abnormal ST-T, V2-V5 Prolonged QT interval...QTc >500mS Physician: depression in lateral leads still present from prior ekg. rate now improved, no stemi
--- NOTE | 2022-04-13 20:20 | HPE_ITS ---
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 She is on metoprolol and in sinus rhythm with only paroxysms of atrial fibrillation since admitted. Her troponins are slightly elevated and will be trended though these appear to be flat and just above 100. This does appear to be secondary elevation of troponins with a non-STEMI type I. She will have updated echocardiogram and continue medical therapy on Lovenox to be switched to Eliquis prior to discharge. She is a full code. (2) CHF (congestive heart failure): Start date: 04/13/22 Status: Chronic Assessment and plan: [id number] ultrasound of the heart did reveal reduced left ventricular tract fraction with some wall motion abnormalities in the apex and B-lines in the lungs suggesting CHF. Patient was initiated on Lasix and feels better. She will continue IV Lasix and update echocardiogram. (3) Elevated troponin level not due to acute coronary syndrome: Start date: 04/13/22 Status: Acute Assessment and plan: Most likely secondary to leak of troponins with trending to continue. Patient should have exercise stress test prior to discharge and at least touch base with cardiology with echocardiogram planned. (4) Hypothyroid: Assessment and plan: TSH is elevated but free T4 is normal. Patient is on Cytomel which is a T3 supplement and that should be addressed as an outpatient with most likely this problem not contribute to cardiac dysrhythmia or symptoms at presentation. 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 She had palpitations which awaken her when she was sleeping on the left side several days prior to presentation and on day of presentation she had dyspnea on exertion which was new. She presented to the ED for evaluation and was found to be in atrial fibrillation with tachycardia. She was initiated on metoprolol with good rate control and sinus rhythm having only paroxysms of atrial flutter with tachycardia early during her hospital stay. Her dyspnea was not present at rest and she had no PND or peripheral edema. She also denies any chest pain or worsening palpitations with exertion. She was thought to be in CHF by imaging and started on diuresis along with rate control with metoprolol. Her troponins were slightly up over 100 and trending flat with continued trending. She is on DVT prophylaxis but will need Eliquis long-term with her new rhythm. Echocardiogram also needs to be updated. Wound care echo in the ED did reveal B-lines and possible wall motion abnormalities in the left ventricle which will be confirmed with formal echocardiogram. She is a full code. Review of Systems Narrative: 13 point review of systems otherwise unrevealing or stable. PFSH All Active Problems (Updated 04/13/22 @ 20:21 by Nolan Smith) Elevated troponin level not due to acute coronary syndrome (Acute) Tachycardia (Acute) CHF (congestive heart failure) (Chronic) Displaced fracture of neck of left fifth metacarpal bone (Acute 01/31/22) Medical History (Updated 04/13/22 @ 20:21 by Nolan Smith) Hypothyroid Surgical History (Updated 10/19/18 @ 09:30 by Rossana Hernandez) H/O section History of appendectomy History of knee surgery Social History Smoking/Tobacco Use Status: Never Smoking risk assessment performed?: Yes Alcohol Intake: current Alcohol Intake frequency: holidays/special occasions only Drug use: Never Substance use type: does not use Do you feel safe at home: Yes Do you feel safe in your relationship?: Yes Meds Allergies and Home Medications Allergies Allergy/AdvReac Type Severity Reaction Status Date / Time Sulfa (Sulfonamide Allergy Skin Rash Verified 04/13/22 17:35 Antibiotics) Home Medications Medication Instructions Recorded Confirmed Type liothyronine 5 mcg tablet (Cytomel) 5 mcg PO DAILY 09/29/17 04/13/22 History Exam Narrative Exam Narrative: General: Patient appears appropriate for age, alert and oriented x3 and in no acute distress. HEENT: Normocephalic, eyes with pupils equal and react to light symmetrically, e xtraocular movement intact and sclera anicteric. Oropharynx with moist mucosa and good dentition. Neck: Supple without JVD. Back: Normal posture without CVA tenderness. Lungs: Clear to auscultation and percussion. Breast: Exam deferred. Heart: Regular rate and rhythm with gallop, possibly S4 but no appreciable murmur. Abdomen: Normal contour, soft and nontender to palpation with no palpable hepat osplenomegaly. Genitalia/rectal: Exam deferred. Extremity: Without clubbing, cyanosis or pitting edema. Peripheral pulses intact. No joint swelling with good range of motion of all joints. Skin: Actinic changes over sun exposed areas which are mild, otherwise normal color, warm and dry. Neuro: Cranial nerves II through XII gross intact, no focalizing motor deficits. No tremor. Psych: Normal affect and mood. No abnormal thought processes. Remote and recent memory intact. Results Imaging Imaging Studies: Exam: XR Chest Exam date and time: 04/13/2022 17:31 Age: 61 years old Clinical indication: Pain; Patient HX: Palpitations started today. TECHNIQUE: Imaging protocol: Radiologic exam of the chest. Views: 1 view. COMPARISON: CT HEAD AND CSPINE W/O CONTRAST 09/29/2017 17:24 FINDINGS: Lungs: No airspace consolidation. Pleural spaces: No pleural effusion. No pneumothorax. Heart/Mediastinum: Mild cardiomegaly without significant vascular congestion for technique. Bones/joints: No acute fracture.? IMPRESSION: Mild cardiomegaly without significant vascular congestion for technique. ED provider: POC ultrasound of the heart and lungs revealed reduced left ventricular ejection fraction with wall motion abnormality toward the apex and early B-lines indicating CHF Labs Result diagrams: 04/14/22 05:55 04/14/22 05:55 Labs: Laboratory Results - last 24 hr 04/13/22 04/13/22 04/13/22 17:37 17:37 17:37 WBC 6.52 RBC 4.28 Hgb 13.8 Hct 42.6 MCV 100 H MCH 32.2 MCHC 32.4 RDW 13.1 Plt Count 181 MPV 12.6 H Immature Gran % 0.3 Neutrophils % 76.0 Lymphocytes % 11.2 Monocytes % 9.8 Eosinophils % 2.5 Basophils % 0.2 Nucleated RBC % 0.0 Absolute Neutrophils 4.96 Absolute Lymphocytes 0.73 L Absolute Monocytes 0.64 Absolute Eosinophils 0.16 Absolute Basophils 0.01 PT INR APTT Sodium 141 Potassium 3.5 Chloride 103 Carbon Dioxide 26.5 Anion Gap 11.5 H BUN 20 H Creatinine 1.0 Est GFR (CKD-EPI 2020) 64.09 Glucose 116 H Calcium 9.0 Magnesium Total Bilirubin 0.5 AST 259 H ALT 441 H Alkaline Phosphatase 123 H Troponin I 134 H* NT-Pro-B Natriuret Pep 27539 H Total Protein 7.3 Albumin 4.0 TSH 4.54 H Free T4 1.27 04/13/22 04/13/22 17:37 17:37 WBC RBC Hgb Hct MCV MCH MCHC RDW Plt Count MPV Immature Gran % Neutrophils % Lymphocytes % Monocytes % Eosinophils % Basophils % Nucleated RBC % Absolute Neutrophils Absolute Lymphocytes Absolute Monocytes Absolute Eosinophils Absolute Basophils PT 10.4 INR 1.0 APTT 25.4 Sodium Potassium Chloride Carbon Dioxide Anion Gap BUN Creatinine Est GFR (CKD-EPI 2020) Glucose Calcium Magnesium 2.2 Total Bilirubin AST ALT Alkaline Phosphatase Troponin I NT-Pro-B Natriuret Pep Total Protein Albumin TSH Free T4 Last Vital Signs Temp 36.5 C 04/13/22 17:24 Pulse 132 H 04/13/22 19:30 Resp 22 04/13/22 19:31 BP 136/87 04/13/22 19:30 Pulse Ox 95 04/13/22 19:31
[2022-04-13 20:52] LABS: Troponin I 106 ng/L (<or=60)
[2022-04-13 21:19] LABS: Source Nasal/Nares
[2022-04-13 21:49] LABS: COVID-19 PCR Negative (Negative)
[2022-04-13 22:29] LABS: Bilirubin Negative (Negative); Blood Trace-intact (Negative); Clarity Clear (Clear); Glucose Negative (Negative); Ketones Negative (Negative); Leukocyte Esterase Negative (Negative); Nitrite Negative (Negative); Urobilinogen 0.2 EU/dL (Up TO 0.2)
[2022-04-13 22:40] LABS: Bacteria Negative HPF (Negative); C & S Indicated? No; Crystals Negative HPF (Negative); Epithelial Cells Negative HPF (Negative); Mucus Negative (Negative); RBC 0-2 HPF (0-2); WBC Negative HPF (0-5)
[2022-04-13] MEDS: Atorvastatin 40 MG TAB 80 MG PO (23:01)
[2022-04-13] MEDS: Metoprolol 25 MG TAB PO (23:01)
[2022-04-13] MEDS: Normal Saline Flush 10 ML SYR IVP (23:02)
[2022-04-13] MEDS: Enoxaparin 40 MG/0.4 ML SYR SC (23:02)
[2022-04-14] VITALS (11 sets, daily range): BP systolic 94–100; BP diastolic 64–70; PULSE 63–134; RESP 16–19; TEMP 36.4–36.8; O2SAT 95–99
[2022-04-14 00:21] LABS: Troponin I 111 ng/L (<or=60)
[2022-04-14] MEDS: Metoprolol 25 MG TAB PO ×4 (04:31→23:03)
[2022-04-14 06:12] LABS: HCT 40.6 % (36.0-46.0); HGB 13.6 g/dL (11.2-15.7); MCH 32.6 pg (27.0-33.0); MCHC 33.5 % (32.0-36.0); MCV 97 fL (80-95); MPV 12.6 fL (8.0-11.0); Platelet Count 171 10^3/uL (130-400); RBC 4.17 10^6/uL (3.93-5.22); RDW 13.3 % (11.7-14.6); RDW-SD 47.4 fL; WBC 4.78 10^3/uL (4.4-10.8)
[2022-04-14 06:21] LABS: INR 1.1 (0.9-1.1); Prothrombin Time 11.4 sec (9.3-11.0)
[2022-04-14 06:29] LABS: ALT 330 U/L (14-59); AST 112 U/L (15-37); Albumin 3.4 g/dL (3.4-5.0); Alkaline Phosphatase 101 U/L (46-116); Anion Gap 10.1 mmol/L (3-11); BUN 17 mg/dL (7-18); Bilirubin, Total 0.7 mg/dL (0.2-1.0); CO2 25.9 mmol/L (21.0-32.0); CREATININE 0.8 mg/dL (0.55-1.02); Calcium 8.9 mg/dL (8.5-10.1); Chloride 106 mmol/L (98-107); Estimated GFR 83.78 (mL/min/1.73m2); Glucose 108 mg/dL (74-106); Potassium 3.6 mmol/L (3.5-5.1); Sodium 142 mmol/L (136-145); Total Protein 6.5 g/dL (6.4-8.2)
[2022-04-14 06:34] LABS: Troponin I 132 ng/L (<or=60)
[2022-04-14] MEDS: Furosemide 40 MG/4 ML VIAL IVP ×2 (07:58→15:43)
[2022-04-14] MEDS: Normal Saline Flush 10 ML SYR IVP ×3 (07:58→19:21)
[2022-04-14] MEDS: Aspirin 81 MG CHEW PO (07:58)
--- NOTE | 2022-04-14 08:35 | INITIAL_ITS ---
- If Service Date Differs Date of service: 04/14/22 Time of Service: 08:35 Care Management Initial Assess REASON FOR HOSPITALIZATION:: Tachycardia, Acute CHF PAST MEDICAL HISTORY/PAST SURGICAL HISTORY:: PFSH. All Active Problems (Updated 04/13/22 @ 20:21 by Nolan Smith). Elevated troponin level not due to acute coronary syndrome (Acute). Tachycardia (Acute). CHF (congestive heart failure) (Chronic). Displaced fracture of neck of left fifth metacarpal bone (Acute 01/31/22). Medical History (Updated 04/13/22 @ 20:21 by Nolan Smith). Hypothyroid. Surgical History (Updated 10/19/18 @ 09:30 by Rossana Hernandez). H/O section. History of appendectomy. History of knee surgery PREVIOUS FUNCTIONAL STATUS/SOCIAL/FAMILY SUPPORTS:: Leelee lives in [place], [place] with her Fili Sue. 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 Leelee is active and independent at baseline. CURRENT FUNCTIONAL STATUS:: Leelee was sitting up in bed when CM met with her. She is awake, alert and pleasant in interaction. ADVANCE DIRECTIVES:: None on file at [facility], has a copy at home. Has patient been provided with info about the portal/API?: Yes Did the patient sign up for the portal?: Yes (Prior to admission) CODE STATUS:: Full Code INSURANCE COVERAGE / FINANCIAL ISSUES:: [place] of [place] CURRENT HOME/COMMUNITY SERVICES/EQUIPMENT:: None PRIMARY CARE PHYSICIAN:: Salty Toledo POTENTIAL DISCHARGE NEEDS:: Close community follow up with PCP and Cardiology. Manager Business Planning (if indicated). PATIENT/FAMILY EDUCATION NEEDS:: Review discharge instructions, medications, limitations and plan to follow up with community providers. Discuss ask me three and goals of self care. ANTICIPATED BARRIERS TO DISCHARGE:: None identified TRANSPORTATION:: Via private Vehicle with PLAN:: Leelee requires further medical evaluation and close cardiac monitoring. Anticipate, Leelee will discharge home via private vehicle with family when medically ready. Leelee will require close community follow up with her PCP and Cardiology.
[2022-04-14 10:35] LABS: Troponin I 138 ng/L (<or=60)
[2022-04-14] MEDS: Metoprolol 5 MG/5 ML VIAL 2.5 MG IVP (11:29)
--- NOTE | 2022-04-14 17:49 | PGE_ITS ---
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 She is on metoprolol and in sinus rhythm with only paroxysms of atrial fibrillation since admission. Troponins: 134>106>111>132>138 echocardiogram ordered Continue Lovenox to be switched to Eliquis prior to discharge. (2) CHF (congestive heart failure): Start date: 04/13/22 Status: Chronic Assessment and plan: NTProB [id number]. Sscox-kh-zthu ultrasound (in ED) of the heart did reveal reduced left ventricular EF with some wall motion abnormalities in the apex and B-lines in the lungs suggesting CHF. Patient was initiated on Lasix and is feeling better / less SOA. She will continue IV Lasix and update echocardiogram. (3) Elevated troponin level not due to acute coronary syndrome: Start date: 04/13/22 Status: Acute Assessment and plan: Most likely secondary to leak of troponins d/t NSTEMI, though a cardiac event may have occured last week when she noted palpitations and developed SHANNON> Cardiology consulted. (4) Hypothyroid: Assessment and plan: TSH is elevated but free T4 is normal. Patient is on Cytomel which is a T3 supplement and that should be addressed as an outpatient with most likely this problem not contributing to cardiac dysrhythmia or symptoms at presentation. Subjective Subjective Patient reports: no new complaints, feels better and afebrile; denies nausea, vomiting or shortness of breath Interval history since last seen: After admission to the med-surg unit her HR remained normal until 11:15 when she was noted to be back in afib with RVR. IV metoprolol given and she converted back to NSR. Exam Narrative Exam Narrative: General: Patient appears appropriate for age, pleasant. NAD HEENT: sclera clear. MMM. Neck: Supple without JVD. Lungs: Clear to auscultation. Nonlabored breathing. Heart: Regular rate and rhythm. No murmur Abdomen: Normal contour, soft and nontender to palpation Extremity: No edema. No joint swelling/erythema. No calf tenderness. Skin: Actinic changes over sun exposed areas which are mild, otherwise normal color, warm and dry. Neuro: No focal motor deficits. No tremor. Psych: Normal affect and mood. No abnormal thought processes. Objective Last Vital Signs Temp 36.5 C 04/14/22 14:56 Pulse 92 H 04/14/22 16:52 Resp 18 04/14/22 14:56 BP 98/67 L 04/14/22 16:52 Pulse Ox 97 04/14/22 14:56 Laboratory Results - last 24 hr 04/13/22 04/13/22 04/13/22 17:37 17:37 17:37 WBC 6.52 RBC 4.28 Hgb 13.8 Hct 42.6 MCV 100 H MCH 32.2 MCHC 32.4 RDW 13.1 Plt Count 181 MPV 12.6 H Immature Gran % 0.3 Neutrophils % 76.0 Lymphocytes % 11.2 Monocytes % 9.8 Eosinophils % 2.5 Basophils % 0.2 Nucleated RBC % 0.0 Absolute Neutrophils 4.96 Absolute Lymphocytes 0.73 L Absolute Monocytes 0.64 Absolute Eosinophils 0.16 Absolute Basophils 0.01 PT INR APTT Sodium 141 Potassium 3.5 Chloride 103 Carbon Dioxide 26.5 Anion Gap 11.5 H BUN 20 H Creatinine 1.0 Est GFR (CKD-EPI 2020) 64.09 Glucose 116 H Calcium 9.0 Magnesium Total Bilirubin 0.5 AST 259 H ALT 441 H Alkaline Phosphatase 123 H Troponin I 134 H* NT-Pro-B Natriuret Pep 48299 H Total Protein 7.3 Albumin 4.0 TSH 4.54 H Free T4 1.27 Urine Color Urine Clarity Urine pH Ur Specific [place] Urine Protein Urine Ketones Urine Blood Urine Nitrite Urine Bilirubin Urine Urobilinogen Ur Leukocyte Esterase Urine RBC Urine WBC Ur Epithelial Cells Urine Crystals Urine Bacteria Urine Mucus Ur Culture Indicated? Urine Glucose COVID-19 Source SARS-CoV-2 (PCR) 04/13/22 04/13/22 04/13/22 17:37 17:37 20:30 WBC RBC Hgb Hct MCV MCH MCHC RDW Plt Count MPV Immature Gran % Neutrophils % Lymphocytes % Monocytes % Eosinophils % Basophils % Nucleated RBC % Absolute Neutrophils Absolute Lymphocytes Absolute Monocytes Absolute Eosinophils Absolute Basophils PT 10.4 INR 1.0 APTT 25.4 Sodium Potassium Chloride Carbon Dioxide Anion Gap BUN Creatinine Est GFR (CKD-EPI 2020) Glucose Calcium Magnesium 2.2 Total Bilirubin AST ALT Alkaline Phosphatase Troponin I 106 H* NT-Pro-B Natriuret Pep Total Protein Albumin TSH Free T4 Urine Color Urine Clarity Urine pH Ur Specific [place] Urine Protein Urine Ketones Urine Blood Urine Nitrite Urine Bilirubin Urine Urobilinogen Ur Leukocyte Esterase Urine RBC Urine WBC Ur Epithelial Cells Urine Crystals Urine Bacteria Urine Mucus Ur Culture Indicated? Urine Glucose COVID-19 Source SARS-CoV-2 (PCR) 04/13/22 04/13/22 04/13/22 21:15 21:53 23:50 WBC RBC Hgb Hct MCV MCH MCHC RDW Plt Count MPV Immature Gran % Neutrophils % Lymphocytes % Monocytes % Eosinophils % Basophils % Nucleated RBC % Absolute Neutrophils Absolute Lymphocytes Absolute Monocytes Absolute Eosinophils Absolute Basophils PT INR APTT Sodium Potassium Chloride Carbon Dioxide Anion Gap BUN Creatinine Est GFR (CKD-EPI 2020) Glucose Calcium Magnesium Total Bilirubin AST ALT Alkaline Phosphatase Troponin I 111 H* NT-Pro-B Natriuret Pep Total Protein Albumin TSH Free T4 Urine Color Yellow Urine Clarity Clear Urine pH 7.0 Ur Specific [place] 1.020 Urine Protein Negative Urine Ketones Negative Urine Blood Trace-intact H Urine Nitrite Negative Urine Bilirubin Negative Urine Urobilinogen 0.2 Ur Leukocyte Esterase Negative Urine RBC 0-2 Urine WBC Negative Ur Epithelial Cells Negative Urine Crystals Negative Urine Bacteria Negative Urine Mucus Negative Ur Culture Indicated? No Urine Glucose Negative COVID-19 Source Nasal/Nares SARS-CoV-2 (PCR) Negative 04/13/22 04/14/22 04/14/22 23:55 05:55 05:55 WBC RBC Hgb Hct MCV MCH MCHC RDW Plt Count MPV Immature Gran % Neutrophils % Lymphocytes % Monocytes % Eosinophils % Basophils % Nucleated RBC % Absolute Neutrophils Absolute Lymphocytes Absolute Monocytes Absolute Eosinophils Absolute Basophils PT INR APTT Sodium 142 Potassium 3.6 Chloride 106 Carbon Dioxide 25.9 Anion Gap 10.1 BUN 17 Creatinine 0.8 Est GFR (CKD-EPI 2020) 83.78 Glucose 108 H Calcium 8.9 Magnesium 2.0 Total Bilirubin 0.7 AST 112 H ALT 330 H Alkaline Phosphatase 101 Troponin I Cancelled 132 H* NT-Pro-B Natriuret Pep Total Protein 6.5 Albumin 3.4 TSH Free T4 Urine Color Urine Clarity Urine pH Ur Specific [place] Urine Protein Urine Ketones Urine Blood Urine Nitrite Urine Bilirubin Urine Urobilinogen Ur Leukocyte Esterase Urine RBC Urine WBC Ur Epithelial Cells Urine Crystals Urine Bacteria Urine Mucus Ur Culture Indicated? Urine Glucose COVID-19 Source SARS-CoV-2 (PCR) 04/14/22 04/14/22 04/14/22 05:55 05:55 10:05 WBC 4.78 RBC 4.17 Hgb 13.6 Hct 40.6 MCV 97 H MCH 32.6 MCHC 33.5 RDW 13.3 Plt Count 171 MPV 12.6 H Immature Gran % Neutrophils % Lymphocytes % Monocytes % Eosinophils % Basophils % Nucleated RBC % Absolute Neutrophils Absolute Lymphocytes Absolute Monocytes Absolute Eosinophils Absolute Basophils PT 11.4 H INR 1.1 APTT Sodium Potassium Chloride Carbon Dioxide Anion Gap BUN Creatinine Est GFR (CKD-EPI 2020) Glucose Calcium Magnesium Total Bilirubin AST ALT Alkaline Phosphatase Troponin I 138 H* NT-Pro-B Natriuret Pep Total Protein Albumin TSH Free T4 Urine Color Urine Clarity Urine pH Ur Specific [place] Urine Protein Urine Ketones Urine Blood Urine Nitrite Urine Bilirubin Urine Urobilinogen Ur Leukocyte Esterase Urine RBC Urine WBC Ur Epithelial Cells Urine Crystals Urine Bacteria Urine Mucus Ur Culture Indicated? Urine Glucose COVID-19 Source SARS-CoV-2 (PCR)
[2022-04-14] MEDS: Atorvastatin 40 MG TAB 80 MG PO (19:21)
[2022-04-14] MEDS: Enoxaparin 40 MG/0.4 ML SYR SC (23:03)
[2022-04-15 02:51] VITALS: BP 96/57; PULSE 82; RESP 16; TEMP 36.8; O2SAT 98
--- NOTE | 2022-04-15 07:00 | DI.US_ITS ---
APPROVED REPORT EXAM: Comprehensive 2D, Doppler, and color-flow Echocardiogram Patient Location: In-Patient Room/Bed: 215 Computer Science Intern: Cherrie Navarrete RDCS (AE) Indications: CHF, Tachycardia Other Information Study Quality: Adequate Conclusion Normal left ventricular wall thickness and chamber size. Estimated ejection fraction is 40 to 45%. There is global hypokinesis. There are no segmental wall motion abnormalities Normal right ventricular size. Right ventricle may be mildly hypocontractile Left atrium is mildly to moderately dilated. The right atrium is normal in size The aortic valve is trileaflet, mildly sclerotic with trace regurgitation Normal mitral valve with moderate to severe regurgitation Normal tricuspid valve with mild to moderate regurgitation. Estimated right ventricular systolic pre ssure is 23 mmHg Wall motion Left Ventricle The left ventricle is normal size. Left ventricular systolic function is moderately decreased. There is normal left ventricular wall thickness. There is global hypokinesis of the left ventricle. There i s no ventricular septal defect visualized. LVEF is 40-45%. Right Ventricle The right ventricle is normal size. Right ventricle is mildly hypokinetic. The RVSP is 22.8mmHg. Atria Left atrium is mildly to moderately dilated. The right atrium size is normal. The interatrial septum is intact with no evidence for an atrial septal defect. Aortic Valve The aortic valve is mildly sclerotic Aortic valve is trileaflet. There is no aortic valvular stenosis . Trace aortic regurgitation. Mitral Valve The mitral valve is normal in structure. No evidence of mitral valve stenosis. Moderate to severe anette ral regurgitation Tricuspid Valve The tricuspid valve is normal in structure. There is no tricuspid valve stenosis. Mild to moderate tr icuspid regurgitation. Pulmonic Valve The pulmonary valve is normal in structure. There is no pulmonic valvular stenosis. Mild pulmonic reg urgitation. Great Vessels The aortic root is normal in size. The ascending aorta is normal in size. Aortic arch is normal in ca liber. IVC is normal in size and collapses >50% with inspiration. Pericardium There is no pericardial effusion. 2D Dimensions IVSD d PLAX 0.90 cm F: 0.6-1.0 LV Vol A2C d MOD 130.7 mL LVPW d PLAX 0.94 cm F: 0.6 - 1.0 LV Vol A4C d MOD 115.4 mL LVID d PLAX 5.05 cm F: 3.8 - 5.2 LA vol/ BSA A2C s A-L 45.1 mL/m2 LVDs 4.00 cm F: 2.2 - 3.5 LA vol/ BSA A4C s A-L 40.5 mL/m2 Ao Root d 3.24 cm F: 2.7 - 3.3 LA Vol/ BSA Biplane s A-L 45.2 mL/m2 RA Area A4C 15.10 cm2 LA Area A4C s MOD 21.94 cm2 RA Vol/ BSA A4C s A-L 26.8 mL/m2 LA Area A2C s MOD 21.92 cm2 Ao Asc Diam d 3.21 cm F: 2.3 - 3.1 LV EF A4C MOD 40.8 % LV EF Teichholz 40.5 % LV EF A2C MOD 40.0 % LVEF ([place]) 40.65 % F: 54 - 74 LV EF Biplane MOD 40.7 % LV Volume 98.86 mL F: 46 - 106 SV 50.18 mL LV Volume Index 59.55 mL/m2 F: 29 - 61 SV Index 30.20 mL/m2 LV Vol Biplane MOD 123.4 mL FS 19.80 % M-Mode TAPSE 1.09 cm (M/F) >1.7 LV Diastology MV E' medial 0.053 (>0.07 m/s) E/A Ratio 1.6 LV E/e MED 16.20 (<14) MV E Vmax 0.86 (0.4-1.3 m/s) MV E' lateral 0.076 (>0.1 m/s) MV A Vmax 0.55 (0.4-1.3 m/s) LV E/e LAT 11.35 (<14) MV E/A Ratio 1.53 MV E/E' medial 16.25 MV E/E' lateral 11.35 Aortic Valve LVOT Area 3.64 cm2 AoV Area Vmax 3.30 cm2 LVOT Vmax 0.87 m/s AoV Area/ BSA (Vmax) 1.99 cm2/m2 LVOT Mean Jethro. 0.58 m/s RUPALI Mean Jethro. 2.91 cm2 LVOT Peak Grad 3.0 mmHg RUPALI Mean Jethro. Index 1.75 cm2/m2 LVOT Mean Grad 1.6 mmHg LVOT VTI 0.136 m LVOT Diam s 2.15 cm AoV Vmax 0.96 m/s Velocity Ratio 0.90 AoV Mean Jethro. 0.73 m/s AoV Peak Grad 3.7 mmHg LVOT SV 49.63 mL AoV Mean Grad 2.3 mmHg AoV VTI 0.146 m AoV Area VTI 3.41 cm2 AoV Area/ BSA (VTI) 2.05 cm/m2 Mitral Valve MV DT 195 (160-240 msec) MR Vmax 4.91 m/s MV PHT 57 msec MR VTI 1.448 m MV Area PHT 3.88 cm2 MR Peak Grad 96.6 mmHg MV VTI 0.208 m MR Mean Grad 61.7 mmHg MV VTI Annulus 0.208 m MR PISA Radius 0.73 cm MV Area VTI 2.40 (4.0-6.0 cm2) MR EROA 0.24 cm2 MR Aliasing Velocity 0.35 m/s MR PISA 3.39 cm2 Pulmonary Valve PV Vmax 0.62 (0.5-1.5 m/s) RVOT Peak Gr. 0.85 mmHg PV Peak Grad 1.6 mmHg RVOT Mean Gr. 0.40 mmHg PV Mean Grad 0.8 mmHg RVOT VTI 0.078 m PV VTI 0.096 m RVOT Vmax 0.46 m/s Tricuspid Valve TR Peak Grad 19.8 mmHg TR Vmax 2.23 m/s RA Pressure 3.00 mmHg RVSP (TR) 22.8 mmHg
[2022-04-15 07:05] LABS: ALT 246 U/L (14-59); AST 52 U/L (15-37); Albumin 3.5 g/dL (3.4-5.0); Alkaline Phosphatase 100 U/L (46-116); Anion Gap 8.5 mmol/L (3-11); BUN 25 mg/dL (7-18); Bilirubin, Total 0.9 mg/dL (0.2-1.0); CO2 28.5 mmol/L (21.0-32.0); CREATININE 0.9 mg/dL (0.55-1.02); Calcium 8.9 mg/dL (8.5-10.1); Chloride 98 mmol/L (98-107); Estimated GFR 72.73 (mL/min/1.73m2); Glucose 109 mg/dL (74-106); Potassium 3.3 mmol/L (3.5-5.1); Sodium 135 mmol/L (136-145); Total Protein 6.6 g/dL (6.4-8.2)
[2022-04-15 08:30] VITALS: BP 105/74; PULSE 78; RESP 17; TEMP 36.8; O2SAT 99
--- NOTE | 2022-04-15 08:48 | PDOC.CMPRO ---
- If Service Date Differs Date of service: 04/15/22 Time of Service: 08:48 Care Management Progress Note S/O: A: 61 year old female admitted to [facility] on 04/13/22 for Tachycardia, Acute CHF P: Leelee requires further medical evaluation and close cardiac monitoring. Anticipate, Leelee will discharge home via private vehicle with family when medically ready. Leelee will require close community follow up with her PCP and Cardiology.
[2022-04-15] MEDS: Aspirin 81 MG CHEW PO (08:56)
--- NOTE | 2022-04-15 09:14 | CCONE_ITS ---
Date of service: 04/15/22 Time of Service: 09:14 Assessment and Plan Assessment and plan (1) CHF (congestive heart failure): Status: Chronic Assessment and plan: Patient is being appropriately treated with furosemide for her acute symptoms. Given that she has LV dysfunction, she should be on guideline directed medical therapy which would include an DEE inhibitor, angiotensin receptor tera or En tresto if the latter is affordable. For her rate control she should be on metoprolol succinate, or carvedilol, or bisoprolol. (2) Paroxysmal atrial fibrillation: Status: Acute Assessment and plan: Anticoagulation with Eliquis Xarelto warfarin or Pradaxa would be appropriate (3) Cardiomyopathy: Status: Acute Assessment and plan: See above. Patient has LV dysfunction. She needs guideline directed medical therapy I expect the patient will improve with treatment of her heart failure. At some point she could be considered for an ischemic evaluation (MPI)but I do not think this needs to be done urgently History of Present Illness History of Present Illness Chief Complaint: Shortness of breath Narrative: This is a 61-year-old woman who presented to the hospital with difficulty breathing. She was found to have paroxysmal atrial flutter/fibrillation as well as evidence of congestive heart failure. Troponins were minimally and nonspecifically elevated. She has converted to sinus rhythm. She has been prescribed metoprolol tartrate, furosemide and Enoxaparin for anticoagulation. Her echocardiogram shows normal left ventricular chamber size. EF is 40 to 45%. There is global hypokinesis without segmental wall motion abnormalities Her EKG shows sinus rhythm, as well as atrial flutter/fibrillation with an interventricular conduction delay like an incomplete left bundle branch block. PFSH All Active Problems (Updated 04/15/22 @ 09:16 by Laura Terry MD) Cardiomyopathy (Acute) Paroxysmal atrial fibrillation (Acute) Elevated troponin level not due to acute coronary syndrome (Acute) Tachycardia (Acute) CHF (congestive heart failure) (Chronic) Displaced fracture of neck of left fifth metacarpal bone (Acute 01/31/22) Medical History (Updated 04/15/22 @ 09:16 by Laura Terry MD) Hypothyroid Surgical History (Updated 10/19/18 @ 09:30 by Rossana Hernandez) H/O section History of appendectomy History of knee surgery Social History Smoking/Tobacco Use Status: Never Smoking risk assessment performed?: Yes Alcohol Intake: current Alcohol Intake frequency: holidays/special occasions only Drug use: Never Substance use type: does not use Do you feel safe at home: Yes Do you feel safe in your relationship?: Yes Exam Narrative Exam Narrative: Patient was not interviewed or examined Results Last Vital Signs Temp 36.8 C 04/15/22 02:51 Pulse 82 04/15/22 02:51 Resp 16 04/15/22 02:51 BP 96/57 L 04/15/22 02:51 Pulse Ox 98 04/15/22 02:51 Labs Result diagrams: 04/14/22 05:55 04/15/22 06:25 Labs: Laboratory Results - last 24 hr 04/14/22 04/15/22 10:05 06:25 Sodium 135 L Potassium 3.3 L Chloride 98 Carbon Dioxide 28.5 Anion Gap 8.5 BUN 25 H Creatinine 0.9 Est GFR (CKD-EPI 2020) 72.73 Glucose 109 H Calcium 8.9 Total Bilirubin 0.9 AST 52 H ALT 246 H Alkaline Phosphatase 100 Troponin I 138 H* Total Protein 6.6 Albumin 3.5
[2022-04-15] MEDS: Normal Saline Flush 10 ML SYR IVP (10:26)
[2022-04-15] MEDS: Metoprolol 25 MG TAB PO (10:27)
[2022-04-15] MEDS: Potassium Chloride 20 MEQ TABCR PO (10:27)
--- NOTE | 2022-04-15 10:37 | W.PM.DS.N ---
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 She had palpitations which awaken her when she was sleeping on the left side several days prior to presentation and on day of presentation she had dyspnea on exertion which was new.? She presented to the ED for evaluation and was found to be in atrial fibrillation with tachycardia.? She was initiated on metoprolol with good rate control and sinus rhythm having only paroxysms of atrial flutter with tachycardia early during her hospital stay.? Her dyspnea was not present at rest and she had no PND or peripheral edema.? She also denies any chest pain or worsening palpitations with exertion.? She was thought to be in CHF by imaging and started on diuresis along with rate control with metoprolol.? Her troponins were 134>106>111>132>138? Echocardiogram: Normal left ventricular wall thickness and chamber size.? Estimated ejection fraction is 40 to 45%.? There is global hypokinesis.? There are no segmental wall motion abnormalities Normal right ventricular size.? Right ventricle may be mildly hypocontractile Left atrium is mildly to moderately dilated.? The right atrium is normal in size The aortic valve is trileaflet, mildly sclerotic with trace regurgitation Normal mitral valve with moderate to severe regurgitation Normal tricuspid valve with mild to moderate regurgitation.? Estimated right ventricular systolic pressure is 23 mmHg Cardiology consulted. The day after admission she was in NSR except for a brief episode of atrial fibrillation that was treated with 2.5 mg IV metoprolol. She converted back to NSR. She will discharge on goal directed therapy for her heart failure with Entresto. For her paroxysmal afib, Eliquis for anticoagulation and metoprolol for rate control. An outpt MPI nuc med stress test ordered. She has a PCP with [facility] and may need to f/u with a bartacker through that system. If not, she can schedule a f/u with Dr. Terry at [facility]> PCP follow up in 1-2 weeks. Home Meds and New Rx's Prescriptions: New metoprolol succinate 25 mg tablet extended release 24 hr 25 mg PO HS Qty: 30 0RF Eliquis 5 mg tablet 5 mg PO BID Qty: 60 0RF Entresto 49-51 mg tablet 1 tab PO BID Qty: 60 0RF Continued liothyronine [Cytomel] 5 MCG tablet 5 mcg PO DAILY Discharge Instructions Instructions: A-fib (Atrial Fibrillation) (DC) Stand Alone Forms: Nursing Discharge Form Referrals: Salty Toledo [Primary Care Provider] - 05/01/22 2:00 pm () Activity:: Activity as Tolerated Equipment/Supplies:: No Equipment Needed Diet:: Low Sodium Discharge Orders Discharge Orders: Discharge Order (Routine); Ordered 04/15/22 Ordered By: Pawel Lynn Other Ambulatory Orders: NM MPI rest & stress grp (Routine) Location: None Selected Ordered By: Pawel Lynn Discharge Data Discharge Date/Time-TO BE ENTERED AT DEPARTURE: 04/15/22 13:59 DS: Summary Time Spent with Patient providing and/or coordinating discharge services: Greater than 30 minutes Status at Discharge Functional status at discharge: independent ambulation Overall status at discharge: patient is progressing back to baseline Mental Status: mental status grossly normal Speech and Movement: speech and movement normal Mood: congruent mood Affect: normal affect Exam Narrative Exam Narrative: General: Patient appears appropriate for age, pleasant. NAD HEENT: sclera clear. MMM. Neck: Supple without JVD. Lungs: Clear to auscultation. Nonlabored breathing. Heart: Regular rate and rhythm. No murmur Extremity: No edema. No joint swelling/erythema. No calf tenderness. Neuro: No focal motor deficits. No tremor. Psych: Normal affect and mood. No abnormal thought processes. Psych Mental Status: mental status grossly normal Speech and Movement: speech and movement normal Mood: congruent mood Affect: normal affect DS: Data Vitals/I&O Vitals and I&O: Vital Signs Temperature 36.8 C 04/15/22 08:30 Temperature Source Tympanic 04/15/22 08:30 Pulse 78 04/15/22 08:30 Pulse Rhythm Regular 04/15/22 08:45 Pulse 86 04/13/22 20:30 Respiratory Rate 17 04/15/22 08:30 Respiratory Effort 04/15/22 08:45 Respiratory Depth Normal 04/15/22 08:45 Respiratory Pattern Normal 04/15/22 08:45 Blood Pressure 105/74 04/15/22 08:30 Blood Pressure Mean 86 04/13/22 20:30 Blood Pressure Position Sitting 04/13/22 17:24 Pulse Oximetry 99 04/15/22 08:30 Oxygen Delivery Method Room Air 04/15/22 08:30 Oxygen Flow Rate 0 04/15/22 08:30 Pain Level 0 04/15/22 10:00 Intake & Output 04/14/22 04/14/22 04/15/22 11:59 23:59 11:59 Intake Total 250 / 310 60 / 310 240 / 240 Output Total 2500 / 5300 2800 / 5300 700 / 700 Balance -2250 / -4990 -2740 / -4990 -460 / -460 Weight 63.8 kg Intake: IV Oral 250 / 300 50 / 300 240 / 240 Output: Urine 2500 / 5300 2800 / 5300 700 / 700 Other: Urine Color Yellow Yellow Yellow Urine Appearance Clear Clear Clear Urine Odor None Normal Normal Voiding Methods Toilet Toilet Toilet Data Completed and Pending Labs on day of discharge: Labs from last 24 hours 04/15/22 06:25 Sodium 135 L Potassium 3.3 L Chloride 98 Carbon Dioxide 28.5 Anion Gap 8.5 BUN 25 H Creatinine 0.9 Est GFR (CKD-EPI 2020) 72.73 Glucose 109 H Calcium 8.9 Total Bilirubin 0.9 AST 52 H ALT 246 H Alkaline Phosphatase 100 Total Protein 6.6 Albumin 3.5 PFSH All Active Problems Cardiomyopathy (Acute) Paroxysmal atrial fibrillation (Acute) Elevated troponin level not due to acute coronary syndrome (Acute) Tachycardia (Acute) CHF (congestive heart failure) (Chronic) Displaced fracture of neck of left fifth metacarpal bone (Acute 01/31/22) Medical History Hypothyroid Surgical History H/O section History of appendectomy History of knee surgery Social History Smoking/Tobacco Use Status: Never Smoking risk assessment performed?: Yes Alcohol Intake: current Alcohol Intake frequency: holidays/special occasions only Drug use: Never Substance use type: does not use Do you feel safe at home: Yes Do you feel safe in your relationship?: Yes
[2022-04-15 12:09] LABS: Lyme Ab w Rflx to Lyme Confirm Negative (Negative)
[2022-04-15 12:22] LABS: Hepatitis A Antibody IgM Negative (Negative); Hepatitis B Core Antibody Negative (Negative); Hepatitis B surface Ag Negative (Negative); Hepatitis C Ab w Rflx HCV PCR Negative (Negative)
--- NOTE | 2022-04-15 13:34 | PDOC.CMDIS ---
- If Service Date Differs Date of service: 04/15/22 Time of Service: 13:34 LACE Index Scoring Tool - Questions: Length of Stay (in days): 2 Acuity (Admit via E.D.?): Yes E.D. Visits: 1 - Answers: Total Score: 6 Risk of Readmission: Low Risk Care Management Discharge Reason for Hospitalization: Tachycardia, Acute CHF Discharge Plan: Leelee is discharged home via private vehicle with family and follow up with community providers and discharge plan of care as prescribed. Leelee has a follow up appointment with her PCP (Dr. Mullins) on 05/01/22, at 1400. New RX's are transmitted to [facility] in [place]. No [facility] services are indicated. MPI Stress Test may be ordered, PRN per Cardiology. Patient/Family Education Needs: Review discharge instructions, limitations, medications and plan to follow up with community providers. Discuss ask me three and goals of self care.
== END 2022-04-15 13:59 | disposition home or self-care (01) | DRG 293 ==
LOC: ER 21:01 → MS 21:32
PROVIDERS: Family Medicine; Registered Nurse Emergency; Admitting Provider Family Medicine; Emergency Provider Emergency Medicine; PCP Family Medicine; Visit Provider Family Medicine
DX: I50.9 Heart failure, unspecified (principal); I48.0 Paroxysmal atrial fibrillation; E03.9 Hypothyroidism, unspecified; R74.8 Abnormal levels of other serum enzymes; I44.7 Left bundle-branch block, unspecified; I42.9 Cardiomyopathy, unspecified
CPT/HCPCS: 36415; 80053; 85027; 86704; 86709; 86803; 87340; 87635; 87798; 93005; 96361; 96374; 96375; 99285; J1650; 71045; 81003; 81015; 83735; 83880; 84439; 84443; 84484; 85025; 85610; 85730; 86618; 93010; 93306; 99223; 99232; 99239; J1940